=== PATIENT | female | born 1995 | race Caucasian/White ===

== ENCOUNTER 2016-08-04 17:25 | Outpatient (CLI) | payer MEDICAID ==
[~2016-08-04] VITALS: Ht 157.5 cm; Wt 95.0 kg
[2016-08-04 17:31] VITALS: BP 111/64; PULSE 92; TEMP 98.4
== END 2016-08-04 18:00 | disposition home or self-care (01) ==
LOC: LDRO 17:25 → EDSEX 17:25 → LDRO 18:00
DX: O36.8130 Decreased fetal movements, third trimester, not applicable or unspecified (principal); Z3A.33 33 weeks gestation of pregnancy

== ENCOUNTER 2016-08-18 13:38 | Inpatient (IN) | payer MEDICAID ==
[~2016-08-18] VITALS: Ht 160 cm; Wt 98.2 kg
[2016-09-08] MEDS ORDERED: TYLENOL 500MG500 MG PO (01:15)
[2016-09-11] VITALS (18 sets, daily range): BP systolic 114–137; BP diastolic 54–81; PULSE 80–119; TEMP 98.1–98.4
[2016-09-11 11:27] LABS: BASO % 0.2 % (0.0-2.0); EOS # 0.1 (0.0-0.7); EOS % 0.8 % (0-4.0); GRAN # 7.7 (1.4-6.5); GRAN % 65.5 % (42.2-75.2); LYMPH # 3.1 (1.2-3.4); LYMPH % 26.1 % (20.0-51.0); MEAN CELL VOLUME 89 fl (80.0-95.0); MEAN CORPUSCULAR HGB CONC 33 g/dl (33.0-37.0); MEAN PLATELET VOLUME 10.1 fl (7.4-10.4); MONO # 0.8 (0.1-0.6); MONO % 6.4 % (1.7-9.3); PLATELET COUNT 413 K/mm3 (130-400); RED BLOOD COUNT 3.44 M/mm3 (4.10-5.30); REDCELL DISTRIBUTION WIDTH-CV 14.4 % (11.5-14.5); WHITE BLOOD COUNT 11.8 K/mm3 (4.8-10.8)
[2016-09-11 11:28] LABS: HEMATOCRIT 30.5 % (35.0-45.0); HEMOGLOBIN 10.1 g/dl (12.0-15.0); MEAN CORPUSCULAR HEMOGLOBIN 29 pg (26.0-32.0)
[2016-09-12 00:30] VITALS: BP 123/61; PULSE 86; TEMP 98.2
[2016-09-12 05:00] VITALS: BP 126/64; PULSE 87; TEMP 98.4
[2016-09-12 07:00] VITALS: BP 125/65; PULSE 94; TEMP 98.1
[2016-09-12 07:47] LABS: BASO % 0.3 % (0.0-2.0); EOS # 0.1 (0.0-0.7); EOS % 0.4 % (0-4.0); GRAN # 7.5 (1.4-6.5); GRAN % 66.6 % (42.2-75.2); LYMPH # 2.8 (1.2-3.4); LYMPH % 24.8 % (20.0-51.0); MEAN CELL VOLUME 89 fl (80.0-95.0); MEAN CORPUSCULAR HGB CONC 33 g/dl (33.0-37.0); MEAN PLATELET VOLUME 10.4 fl (7.4-10.4); MONO # 0.8 (0.1-0.6); MONO % 7.1 % (1.7-9.3); PLATELET COUNT 338 K/mm3 (130-400); RED BLOOD COUNT 3.16 M/mm3 (4.10-5.30); REDCELL DISTRIBUTION WIDTH-CV 14.5 % (11.5-14.5); WHITE BLOOD COUNT 11.2 K/mm3 (4.8-10.8)
[2016-09-12 07:54] LABS: HEMOGLOBIN 9.2 g/dl (12.0-15.0); MEAN CORPUSCULAR HEMOGLOBIN 29 pg (26.0-32.0)
[2016-09-12] MEDS ORDERED: PERCOCET 325 MG1 TA2 PO (12:58)
[2016-09-12] MEDS ORDERED: IBU800 M1 PO (12:58)
[2016-09-12 15:25] VITALS: BP 116/72; PULSE 76; TEMP 97.6
[2016-09-12 21:00] VITALS: BP 113/67; PULSE 104; TEMP 97.7
[2016-09-13 08:30] VITALS: BP 117/58; PULSE 102; TEMP 97.8
== END 2016-09-13 13:30 | disposition home or self-care (01) | DRG 765 ==
LOC: LDR 09-11 08:32 → EDSEX 09-11 10:25 → OB 09-11 10:25 → EDSTATUS 09-18 08:30 → LDRO 09-18 13:37
PROVIDERS: Student in an Organized Health Care Education/Training Program
PROC: 10D00Z1 Extraction of Products of Conception, Low, Open Approach (ICD-10-PCS; principal; 2016-09-11)
DX: O9A.42 Sexual abuse complicating childbirth (principal); O98.313 Other infections with a predominantly sexual mode of transmission complicating pregnancy, third trimester; O36.0130 Maternal care for anti-D [Rh] antibodies, third trimester, not applicable or unspecified; A56.02 Chlamydial vulvovaginitis; O9A.32 Physical abuse complicating childbirth; O99.824 Streptococcus B carrier state complicating childbirth; O99.013 Anemia complicating pregnancy, third trimester; D64.9 Anemia, unspecified; Z3A.39 39 weeks gestation of pregnancy; Z37.0 Single live birth
CPT/HCPCS: J0690; J1885; J2370; J2405; J2590; J2791; J3010; J7120

== ENCOUNTER 2016-09-08 00:55 | Outpatient (CLI) | payer MEDICAID ==
[~2016-09-08] VITALS: Ht 157.5 cm; Wt 97.7 kg
[2016-09-08 01:07] VITALS: BP 123/75; PULSE 100; TEMP 97.9
[2016-09-08] MEDS ORDERED: TYLENOL 500MG500 MG PO (01:15)
[2016-09-08 01:30] VITALS: BP 123/75; PULSE 100; TEMP 97.9
[2016-09-08 02:00] VITALS: BP 128/72; PULSE 79
[2016-09-08 02:30] VITALS: BP 120/79; PULSE 93
[2016-09-08 03:00] VITALS: BP 126/67; PULSE 82
[2016-09-08 03:30] VITALS: BP 123/70; PULSE 78
== END 2016-09-08 04:20 | disposition home or self-care (01) ==
LOC: EDSEX 00:55 → LDRO 00:55
DX: O99.89 Other specified diseases and conditions complicating pregnancy, childbirth and the puerperium (principal); M54.9 Dorsalgia, unspecified; Z87.891 Personal history of nicotine dependence; Z3A.38 38 weeks gestation of pregnancy
CPT/HCPCS: J7120

== ENCOUNTER 2016-11-26 14:40 | Emergency (ER) | payer MEDICAID ==
[~2016-11-26] VITALS: Ht 157.5 cm; Wt 90.5 kg
[~2016-11-26 14:40] MED LIST: IBU800 M1 PO; PERCOCET 325 MG1 TA2 PO; TYLENOL 500MG500 MG PO
[2016-11-26 14:42] VITALS: BP 137/70; TEMP 98
[2016-11-26 16:08] LABS: AMPHETAMINE URINE NEGATIVE; BARBITURATES URINE NEGATIVE; BENZODIAZEPINES URINE NEGATIVE; BUPRENORPHINE URINE NEGATIVE; METHADONE URINE NEGATIVE; OPIATES URINE NEGATIVE; OXYCODONE URINE NEGATIVE; PHENCYCLIDINE URINE NEGATIVE; PROPOXYPHENE URINE NEGATIVE; THC CANNABINOIDS URINE POSITIVE
[2016-11-26 16:13] LABS: PH 7 (5-8); URINE APPEARANCE Hazy; URINE BACTERIA Rare /hpf; URINE BILIRUBIN Negative (NEGATIVE); URINE BLOOD Negative (NEGATIVE); URINE COLOR Yellow; URINE GLUCOSE Negative (NEGATIVE); URINE KETONE Negative (NEGATIVE); URINE UROBILINOGEN Negative (NEGATIVE)
[2016-11-26 16:14] LABS: URINE WBC >50 /hpf
[2016-11-26 16:48] LABS: CALCIUM 9.2 mg/dL (8.4-10.2); CREATININE, serum 0.74 mg/dL (0.52-1.25); MAGNESIUM 1.8 mg/dL (1.6-2.3); POTASSIUM 3.9 mmol/L (3.4-5.0)
[2016-11-26] MEDS ORDERED: CIPRO 500MG TA500 MG PO (16:56)
[2016-11-26 17:06] VITALS: PULSE 72
== END 2016-11-26 17:06 | disposition home or self-care (01) ==
LOC: COL.ER 14:40
PROVIDERS: Emergency Medicine
DX: N39.0 Urinary tract infection, site not specified (principal); R20.9 Unspecified disturbances of skin sensation; F17.210 Nicotine dependence, cigarettes, uncomplicated; Z32.02 Encounter for pregnancy test, result negative
CPT/HCPCS: J0696

== ENCOUNTER 2017-02-17 14:27 | Emergency (ER) | payer MEDICAID ==
[~2017-02-17] VITALS: Ht 157.5 cm; Wt 90.9 kg
[~2017-02-17 14:27] MED LIST changes: +CIPRO 500MG TA500 MG PO
[2017-02-17 14:30] VITALS: TEMP 98.1
[2017-02-17 15:04] LABS: COLLECTION METHOD CLEAN CATCH
[2017-02-17 15:14] LABS: BASO % 0.4 % (0.0-2.0); EOS # 0.2 (0.0-0.7); EOS % 1.9 % (0-4.0); GRAN # 5.7 (1.4-6.5); GRAN % 59.5 % (42.2-75.2); HEMATOCRIT 39.3 % (35.0-45.0); HEMOGLOBIN 12.5 g/dl (12.0-15.0); LYMPH # 3.2 (1.2-3.4); LYMPH % 33.3 % (20.0-51.0); MEAN CELL VOLUME 87 fl (80.0-95.0); MEAN CORPUSCULAR HEMOGLOBIN 28 pg (26.0-32.0); MEAN CORPUSCULAR HGB CONC 32 g/dl (33.0-37.0); MEAN PLATELET VOLUME 10.1 fl (7.4-10.4); MONO # 0.4 (0.1-0.6); MONO % 4.6 % (1.7-9.3); PLATELET COUNT 429 K/mm3 (130-400); WHITE BLOOD COUNT 9.6 K/mm3 (4.8-10.8)
[2017-02-17 15:24] LABS: MUCOUS Present /lpf; PH 6 (5-8); URINE APPEARANCE Hazy; URINE BACTERIA None Seen /hpf; URINE BILIRUBIN Negative (NEGATIVE); URINE BLOOD 1+ (NEGATIVE); URINE COLOR Yellow; URINE GLUCOSE Negative (NEGATIVE); URINE KETONE Negative (NEGATIVE); URINE LEUKOCYTE ESTERASE 2+ (NEGATIVE); URINE PROTEIN(semi-quant) Negative (NEGATIVE); URINE RBC 0-2 /hpf; URINE UROBILINOGEN Negative (NEGATIVE)
[2017-02-17 15:30] LABS: ALBUMIN 4.6 gm/dL (3.5-5.0); BILIRUBIN,TOTAL 0.4 mg/dL (0.0-1.0); C-REACTIVE PROTEIN 1.4 mg/dL (0.0-0.9); CALCIUM 9.5 mg/dL (8.4-10.2); CREATININE, serum 0.66 mg/dL (0.52-1.25); POTASSIUM 3.8 mmol/L (3.4-5.0)
[2017-02-17] MEDS ORDERED: ZOFRAN ODT4 MG PO (16:23)
[2017-02-17] MEDS ORDERED: CEFTIN500 MG PO (16:24)
[2017-02-17 16:33] VITALS: BP 124/74; PULSE 81
[2017-02-17 17:20] LABS: CHLAMYDIA/TRACH by PCR Female NOT DETECTED; NEISSERIA GON by PCR Female NOT DETECTED
== END 2017-02-17 16:34 | disposition home or self-care (01) ==
LOC: COL.ER 14:27
PROVIDERS: Nurse Practitioner
DX: N89.8 Other specified noninflammatory disorders of vagina (principal); R11.10 Vomiting, unspecified; F12.90 Cannabis use, unspecified, uncomplicated; Z87.440 Personal history of urinary (tract) infections
CPT/HCPCS: J2405; J7030

== ENCOUNTER 2017-05-27 15:40 | Emergency (ER) | payer MEDICAID ==
[~2017-05-27] VITALS: Ht 157.5 cm; Wt 90.9 kg
[~2017-05-27 15:40] MED LIST changes: +CEFTIN500 MG PO; +ZOFRAN ODT4 MG PO
[2017-05-27 15:44] VITALS: BP 134/100; PULSE 87; TEMP 98.8
== END 2017-05-27 17:27 | disposition left against medical advice (07) ==
LOC: COL.ER 15:40
DX: N89.8 Other specified noninflammatory disorders of vagina (principal); F17.210 Nicotine dependence, cigarettes, uncomplicated; F12.90 Cannabis use, unspecified, uncomplicated; Z98.890 Other specified postprocedural states

== ENCOUNTER 2017-12-29 11:03 | Emergency (ER) | payer SELFPAY ==
[~2017-12-29] VITALS: Ht 157.5 cm; Wt 90.9 kg
[2017-12-29 11:09] VITALS: TEMP 98.5
[2017-12-29 11:35] LABS: COLLECTION METHOD CLEAN CATCH
[2017-12-29 11:46] LABS: MUCOUS Present /lpf; PH 7 (5-8); URINE APPEARANCE Hazy; URINE BACTERIA Rare /hpf; URINE BILIRUBIN Negative (NEGATIVE); URINE BLOOD Negative (NEGATIVE); URINE COLOR Yellow; URINE GLUCOSE Negative (NEGATIVE); URINE KETONE Negative (NEGATIVE); URINE LEUKOCYTE ESTERASE Trace (NEGATIVE); URINE NITRATE Negative (NEGATIVE); URINE PROTEIN(semi-quant) Negative (NEGATIVE); URINE UROBILINOGEN Negative (NEGATIVE)
[2017-12-29 12:18] LABS: BASO # 0.1 (0.0-0.2); BASO % 0.5 % (0.0-2.0); EOS # 0.1 (0.0-0.7); EOS % 1.3 % (0-4.0); GRAN # 5.8 (1.4-6.5); GRAN % 54.9 % (42.2-75.2); HEMATOCRIT 40.3 % (37.0-47.0); HEMOGLOBIN 13.2 g/dl (12.5-16.0); LYMPH # 3.9 (1.2-3.4); LYMPH % 37.4 % (20.0-51.0); MEAN CELL VOLUME 91 fl (80.0-100.0); MEAN CORPUSCULAR HEMOGLOBIN 30 pg (27.0-31.0); MEAN CORPUSCULAR HGB CONC 33 g/dl (33.0-37.0); MEAN PLATELET VOLUME 9.7 fl (7.4-10.4); MONO # 0.6 (0.1-0.6); MONO % 5.3 % (1.7-9.3); PLATELET COUNT 395 K/mm3 (130-400); RED BLOOD COUNT 4.43 M/mm3 (4.10-5.30); REDCELL DISTRIBUTION WIDTH-CV 13.3 % (11.5-14.5)
[2017-12-29 12:28] LABS: ALBUMIN 4.4 gm/dL (3.5-5.0); BILIRUBIN,TOTAL 0.4 mg/dL (0.0-1.0); CALCIUM 9.4 mg/dL (8.4-10.2); CREATININE, serum 0.62 mg/dL (0.52-1.25); POTASSIUM 4.1 mmol/L (3.4-5.0); TOTAL PROTEIN 8.2 gm/dL (6.4-8.2)
[2017-12-29] MEDS ORDERED: FLAGYL500 MG PO (14:06)
[2017-12-29] MEDS ORDERED: DOXYCYCLINE 10100 MG PO (14:06)
[2017-12-29 14:39] VITALS: BP 121/70; PULSE 69
== END 2017-12-29 14:39 | disposition home or self-care (01) ==
LOC: COL.ER 11:03
PROVIDERS: Emergency Medicine; Nurse Practitioner
DX: N73.9 Female pelvic inflammatory disease, unspecified (principal); N76.0 Acute vaginitis; F32.9 Major depressive disorder, single episode, unspecified; F41.9 Anxiety disorder, unspecified; F12.90 Cannabis use, unspecified, uncomplicated; Z98.890 Other specified postprocedural states
CPT/HCPCS: J2405; J7030

== ENCOUNTER → 2018-02-17 | Outpatient (CLI) | payer SELFPAY ==
[~2018-02-17] MED LIST changes: +DOXYCYCLINE 10100 MG PO; +FLAGYL500 MG PO
== END ==
LOC: COL.VAS 10:45
DX: Z34.91 Encounter for supervision of normal pregnancy, unspecified, first trimester (principal); Z30.431 Encounter for routine checking of intrauterine contraceptive device; Z3A.01 Less than 8 weeks gestation of pregnancy

== ENCOUNTER 2018-02-22 11:30 | Emergency (ER) | payer MEDICAID ==
[~2018-02-22] VITALS: Ht 157.5 cm; Wt 96.8 kg
[2018-02-22 11:39] VITALS: TEMP 98.4
[2018-02-22 12:32] LABS: BASO % 0.4 % (0.0-2.0); EOS # 0.1 (0.0-0.7); EOS % 0.6 % (0-4.0); GRAN # 4.9 (1.4-6.5); GRAN % 61.5 % (42.2-75.2); HEMOGLOBIN 12.4 g/dl (12.5-16.0); LYMPH # 2.5 (1.2-3.4); LYMPH % 31.2 % (20.0-51.0); MEAN CELL VOLUME 91 fl (80.0-100.0); MEAN CORPUSCULAR HEMOGLOBIN 30 pg (27.0-31.0); MEAN CORPUSCULAR HGB CONC 34 g/dl (33.0-37.0); MEAN PLATELET VOLUME 10.1 fl (7.4-10.4); MONO # 0.5 (0.1-0.6); PLATELET COUNT 358 K/mm3 (130-400); RED BLOOD COUNT 4.09 M/mm3 (4.10-5.30); REDCELL DISTRIBUTION WIDTH-CV 13.3 % (11.5-14.5)
[2018-02-22 12:39] LABS: ALBUMIN 4.3 gm/dL (3.5-5.0); BILIRUBIN,TOTAL 0.5 mg/dL (0.0-1.0); CALCIUM 9.7 mg/dL (8.4-10.2); CREATININE, serum 0.57 mg/dL (0.52-1.25); POTASSIUM 3.7 mmol/L (3.4-5.0); TOTAL PROTEIN 7.7 gm/dL (6.4-8.2)
[2018-02-22 13:31] LABS: COLLECTION METHOD CLEAN CATCH
[2018-02-22 13:38] LABS: MUCOUS Present /lpf; PH 7 (5-8); SQUAMOUS EPITHELIAL 0-2 /hpf; URINE APPEARANCE Clear; URINE BACTERIA None Seen /hpf; URINE BILIRUBIN Negative (NEGATIVE); URINE BLOOD Negative (NEGATIVE); URINE COLOR Straw; URINE GLUCOSE Negative (NEGATIVE); URINE KETONE 1+ (NEGATIVE); URINE LEUKOCYTE ESTERASE Negative (NEGATIVE); URINE NITRATE Negative (NEGATIVE); URINE PROTEIN(semi-quant) Negative (NEGATIVE); URINE RBC 0-2 /hpf; URINE UROBILINOGEN Negative (NEGATIVE)
[2018-02-22 14:25] VITALS: BP 124/74; PULSE 77
== END 2018-02-22 14:25 | disposition home or self-care (01) ==
LOC: COL.ER 11:30
PROVIDERS: Physician Assistant
DX: O21.9 Vomiting of pregnancy, unspecified (principal); O99.331 Smoking (tobacco) complicating pregnancy, first trimester; F17.210 Nicotine dependence, cigarettes, uncomplicated; Z98.890 Other specified postprocedural states; Z3A.01 Less than 8 weeks gestation of pregnancy
CPT/HCPCS: J2405; J7030

== ENCOUNTER → 2018-03-02 | Outpatient (CLI) | payer MEDICAID ==
[~2018-03-02] MED LIST changes: +PRENATAL MVI
== END ==
LOC: COL.RAD 13:06
DX: T83.89XD Other specified complication of genitourinary prosthetic devices, implants and grafts, subsequent encounter (principal)

== ENCOUNTER 2018-03-03 15:06 | Emergency (ER) | payer MEDICAID ==
[~2018-03-03] VITALS: Ht 157.5 cm; Wt 94.1 kg
[~2018-03-03 15:06] MED LIST changes: -PRENATAL MVI
[2018-03-03 15:09] VITALS: TEMP 98.1
[2018-03-03] MEDS ORDERED: PRENATAL MVI (15:12)
[2018-03-03 15:36] LABS: COLLECTION METHOD CLEAN CATCH
[2018-03-03 15:41] LABS: BASO % 0.2 % (0.0-2.0); EOS % 0.2 % (0-4.0); GRAN # 9.9 (1.4-6.5); GRAN % 76.4 % (42.2-75.2); HEMATOCRIT 38.2 % (37.0-47.0); LYMPH # 2.5 (1.2-3.4); LYMPH % 19.3 % (20.0-51.0); MEAN CELL VOLUME 89 fl (80.0-100.0); MEAN CORPUSCULAR HEMOGLOBIN 30 pg (27.0-31.0); MEAN CORPUSCULAR HGB CONC 34 g/dl (33.0-37.0); MEAN PLATELET VOLUME 9.9 fl (7.4-10.4); MONO # 0.5 (0.1-0.6); MONO % 3.5 % (1.7-9.3); PLATELET COUNT 393 K/mm3 (130-400); RED BLOOD COUNT 4.29 M/mm3 (4.10-5.30); REDCELL DISTRIBUTION WIDTH-CV 13.2 % (11.5-14.5)
[2018-03-03 15:49] LABS: ALBUMIN 4.3 gm/dL (3.5-5.0); BILIRUBIN,TOTAL 0.3 mg/dL (0.0-1.0); CALCIUM 9.5 mg/dL (8.4-10.2); CREATININE, serum 0.49 mg/dL (0.52-1.25); POTASSIUM 3.7 mmol/L (3.4-5.0); TOTAL PROTEIN 7.7 gm/dL (6.4-8.2)
[2018-03-03 16:12] LABS: MUCOUS Present /lpf; PH 7 (5-8); URINE APPEARANCE Hazy; URINE BACTERIA Rare /hpf; URINE BILIRUBIN Negative (NEGATIVE); URINE BLOOD Negative (NEGATIVE); URINE COLOR Yellow; URINE GLUCOSE Negative (NEGATIVE); URINE KETONE 1+ (NEGATIVE); URINE LEUKOCYTE ESTERASE 1+ (NEGATIVE); URINE NITRATE Negative (NEGATIVE); URINE PROTEIN(semi-quant) 1+ (NEGATIVE); URINE RBC 0-2 /hpf; URINE UROBILINOGEN Negative (NEGATIVE)
[2018-03-03] MEDS ORDERED: ZOFRAN ODT4 MG PO (16:36)
[2018-03-03 17:02] VITALS: BP 128/64; PULSE 90
== END 2018-03-03 17:04 | disposition home or self-care (01) ==
LOC: COL.ER 15:06
PROVIDERS: Emergency Medicine
DX: O21.1 Hyperemesis gravidarum with metabolic disturbance (principal); Z3A.01 Less than 8 weeks gestation of pregnancy; Z98.890 Other specified postprocedural states
CPT/HCPCS: J2765; J7030

== ENCOUNTER 2018-05-24 08:37 | Emergency (ER) | payer MEDICAID ==
[~2018-05-24] VITALS: Ht 157.5 cm; Wt 96.0 kg
[~2018-05-24 08:37] MED LIST changes: +PRENATAL MVI
[2018-05-24 08:42] VITALS: TEMP 97.9
[2018-05-24] MEDS ORDERED: CORTISPORIN OTI10 ML OT (08:58)
[2018-05-24] MEDS ORDERED: AMOXICILLIN875 MG PO (08:58)
[2018-05-24 09:10] VITALS: BP 122/73; PULSE 93
[2018-05-24] MEDS ORDERED: TYLENOL 325MG325 MG PO (09:26)
== END 2018-05-24 09:10 | disposition home or self-care (01) ==
LOC: COL.ER 08:37
DX: O99.512 Diseases of the respiratory system complicating pregnancy, second trimester (principal); O26.892 Other specified pregnancy related conditions, second trimester; H92.01 Otalgia, right ear; J06.9 Acute upper respiratory infection, unspecified; J01.90 Acute sinusitis, unspecified; Z3A.20 20 weeks gestation of pregnancy

== ENCOUNTER 2018-07-07 22:27 | Outpatient (CLI) | payer MEDICAID ==
[~2018-07-07] VITALS: Ht 157.5 cm; Wt 95.9 kg
[~2018-07-07 22:27] MED LIST changes: +AMOXICILLIN875 MG PO; +CORTISPORIN OTI10 ML OT; +TYLENOL 325MG325 MG PO
[2018-07-07 22:41] VITALS: BP 125/61; PULSE 90; TEMP 98.3
[2018-07-07] MEDS ORDERED: ZOLOFT 50MG50 MG PO (22:49)
[2018-07-07 23:00] VITALS: BP 125/61; PULSE 90; TEMP 98.3
== END 2018-07-07 23:05 | disposition home or self-care (01) ==
LOC: LDRO 22:27
DX: O62.9 Abnormality of forces of labor, unspecified (principal); Z3A.25 25 weeks gestation of pregnancy

== ENCOUNTER 2018-08-10 21:14 | Outpatient (CLI) | payer MEDICAID ==
[~2018-08-10] VITALS: Ht 157.5 cm; Wt 98.2 kg
[~2018-08-10 21:14] MED LIST changes: +ZOLOFT 50MG50 MG PO
--- NOTE | 2018-08-10 21:30 | NUR ---
G2L1. 30-3. Ambulatory to LDR 5 with signifcant other. Clean gown on. EFM and TOCO explained and applied. Pt states she has been having back pain for the last 3 days. States that this afternoon pain started to radiate to her upper abdomen and only occurs when she bends down. Denies LOF or vaginal bleeding. Reports good movement. Pt reports she occationally smokes marijuana and states she lasted used marijuana on thursday08/06/2018. Pt reports that she has been drinking a lot of water. Assessment and vital signs compelted. 2156: called and updated on pts status. See physican notification. Pt updated on UA orders and plan of care. Pt off monitors to void. 2230: UA results called to . Discharge orders received. See physican notification. 2232: Pt updated on discharge orders and montiors removed. 5: Discharge instructions explained to pt and signifcant other. Questions answered. Pt ambulatory off unit and home with significant other.
[2018-08-10] MEDS ORDERED: TYLENOL 500MG500 MG PO (21:44)
[2018-08-10] MEDS ORDERED: BENADRYL25 M2 PO (21:45)
[2018-08-10 22:00] VITALS: BP 127/78; PULSE 91; TEMP 98.3
[2018-08-10 22:19] LABS: COLLECTION METHOD CLEAN CATCH
[2018-08-10 22:25] LABS: MUCOUS Present /lpf; PH 7 (5-8); SQUAMOUS EPITHELIAL 0-2 /hpf; URINE APPEARANCE Clear; URINE BACTERIA None Seen /hpf; URINE BILIRUBIN Negative (NEGATIVE); URINE BLOOD Negative (NEGATIVE); URINE COLOR Yellow; URINE GLUCOSE Negative (NEGATIVE); URINE KETONE Trace (NEGATIVE); URINE LEUKOCYTE ESTERASE Trace (NEGATIVE); URINE NITRATE Negative (NEGATIVE); URINE PROTEIN(semi-quant) Negative (NEGATIVE); URINE RBC 0-2 /hpf; URINE UROBILINOGEN Negative (NEGATIVE)
[2018-08-10 22:33] VITALS: BP 116/56; PULSE 92
== END 2018-08-10 22:45 | disposition home or self-care (01) ==
LOC: LDRO 21:14
PROVIDERS: Obstetrics & Gynecology
DX: O99.89 Other specified diseases and conditions complicating pregnancy, childbirth and the puerperium (principal); M54.9 Dorsalgia, unspecified; Z3A.30 30 weeks gestation of pregnancy

== ENCOUNTER 2018-09-05 10:05 | Outpatient (CLI) | payer MEDICAID ==
[~2018-09-05] VITALS: Ht 157.5 cm; Wt 99.1 kg
[~2018-09-05 10:05] MED LIST changes: +BENADRYL25 M2 PO
--- NOTE | 2018-09-05 10:15 | NUR ---
1015-34.1 [address] GONZALEZ AMBULATORY OT LR 3 WITH COMPLAINTS OF DECREASED FM FOLLOWING A FALL 30 MIN AGO. PATIENT WITH MUD ON UPPER ARM AND ALL OVER BLE. ASSISTED PATIENT TO CLEAN UP AND CHANGE INTO GOWN. PATIENT TO BED AND PLACED ON EFM. REACTIVE FHR WITH BASELINE 120BPM. PATIENT DENIES CONTRACTIONS, LOF, OR VB. UPDATED ON PLAN OF CARE. BP 141/87 AT THIS TIME. REVIEWED ASSESSMENT. PATIENT INITIALLY STATES SHE WAS CHASING A DOG AND THE MUD CAUSED HER FALL. AFTER FURTHER DISCUSSION PATIENT REPORTS SHE FELL WHILE PUSHING HER CAR OUT OF MUD AFTER SEEING STRAY DOG AND ATTEMPTING TO TAKE IT TO POUND. PATIENTS REPORT OF EVENTS NOT VERY CLEAR. RN ASKS PATIENT IF ANY OF THE EVENTS WERE THE RESULT OF ABUSE. PATIENT STRONGLY ANSWERS "NO" AND REPORTS SHE WAS ALONE IN CAR AND HAD TO CALL TOW TRUCK AND THEY CAN VERIFY EVENTS. REPORTS HER IS HOME AND SHE HAS TRIED TO WAKE HIM BUT HE IS NOT ANSWERING. 1055-UPDATED MD ON PATIENTS ARRIVAL AND REVIEWED BP AND STRIP WITH MD, SEE PHYSICIAN NOTIFICATION.
[2018-09-05 10:20] VITALS: BP 141/87; PULSE 97; TEMP 98.5
[2018-09-05 10:45] VITALS: BP 135/77; PULSE 81; TEMP 98.5
[2018-09-05 11:15] VITALS: BP 134/78; PULSE 82
[2018-09-05 11:45] VITALS: BP 129/73; PULSE 81
[2018-09-05 11:50] LABS: TRICYCLIC ANTIDEPRESS URINE NEGATIVE
[2018-09-05 12:15] VITALS: BP 130/79; PULSE 82
--- NOTE | 2018-09-05 12:50 | NUR ---
1212-PATIENT MOVING IN BED. ADJUSTED EFM. 1215-PATIENT OFF EFM. REVIEWED DISCHARGE INSTRUCTIONS AND KICK COUNTS WITH PATIENT. PATIENT VERBALIZED UNDERSTANDING. 1221-AMBULATORY OFF UNIT.
== END 2018-09-05 12:21 | disposition home or self-care (01) ==
LOC: LDRO 10:05 → LDR 11:02 → LDRO 12:21
PROVIDERS: Obstetrics & Gynecology
DX: O36.8130 Decreased fetal movements, third trimester, not applicable or unspecified (principal); Z3A.34 34 weeks gestation of pregnancy
CPT/HCPCS: OP

== ENCOUNTER 2018-09-27 11:50 | Outpatient (CLI) | payer MEDICAID ==
[~2018-09-27] VITALS: Ht 157.5 cm; Wt 100.0 kg
--- NOTE | 2018-09-27 12:00 | NUR ---
Pt arrives on unit ambulatory with spouse. States contractions that are painful that began last night and continued into this morning. States contractions every 10 minutes with constant movement. Denies leaking of fluid, vaginal bleeding and reports movement. Changed into a clean gown. EFM and toco applied. VSS. Admission assessment completed. Dr. Power notified. See physician notification. Pt updated on POC. Safety reviewed. Bed locked in low position. Call light within reach.
[2018-09-27 12:30] VITALS: BP 136/70; PULSE 93; TEMP 98.3
[2018-09-27 12:57] VITALS: BP 118/58; PULSE 77
== END 2018-09-27 13:04 | disposition home or self-care (01) ==
LOC: LDRO 11:50 → LDR 12:00 → LDRO 13:04
DX: O62.9 Abnormality of forces of labor, unspecified (principal); Z3A.37 37 weeks gestation of pregnancy
CPT/HCPCS: OP

== ENCOUNTER 2018-10-04 15:25 | Outpatient (CLI) | payer MEDICAID ==
[~2018-10-04] VITALS: Ht 160 cm; Wt 100.0 kg
[2018-10-04 15:43] VITALS: BP 124/70; PULSE 105; TEMP 98
[2018-10-04 16:00] VITALS: BP 124/70; PULSE 105; TEMP 98
[2018-10-04 16:23] LABS: COLLECTION METHOD CLEAN CATCH
[2018-10-04 16:30] VITALS: BP 117/61; BP 125/60; PULSE 82; PULSE 89
[2018-10-04 16:34] LABS: MUCOUS Present /lpf; PH 7 (5-8); URINE APPEARANCE Hazy; URINE BACTERIA None Seen /hpf; URINE BILIRUBIN Negative (NEGATIVE); URINE BLOOD Negative (NEGATIVE); URINE COLOR Yellow; URINE GLUCOSE Negative (NEGATIVE); URINE KETONE Negative (NEGATIVE); URINE LEUKOCYTE ESTERASE 1+ (NEGATIVE); URINE NITRATE Negative (NEGATIVE); URINE PROTEIN(semi-quant) Negative (NEGATIVE); URINE UROBILINOGEN Negative (NEGATIVE)
[2018-10-04 16:56] LABS: TRICYCLIC ANTIDEPRESS URINE NEGATIVE
[2018-10-04 17:00] VITALS: BP 116/69; PULSE 91
[2018-10-04 17:30] VITALS: BP 125/56; PULSE 88
[2018-10-04 17:45] VITALS: BP 119/61; PULSE 82
--- NOTE | 2018-10-04 17:50 | NUR ---
ANTIBIOTIC CALLED INTO [facility]
== END 2018-10-04 17:50 | disposition home or self-care (01) ==
LOC: LDRO 15:25 → LDR 16:11 → LDRO 17:50
PROVIDERS: Obstetrics & Gynecology
DX: O62.2 Other uterine inertia (principal); Z3A.38 38 weeks gestation of pregnancy
CPT/HCPCS: OP; J7120

== ENCOUNTER 2018-10-10 21:52 | Outpatient (CLI) | payer MEDICAID ==
[~2018-10-10] VITALS: Ht 157.5 cm; Wt 100.5 kg
--- NOTE | 2018-10-10 22:00 | NUR ---
2199- PATIENT BEING SEEN AT 39.2 WEEK G2L1 WITH C/O DECREASED MOVEMENT AND PINK VAGINAL FLUID. EFM APPLIED, HEARTONES AUDIBLE. VSS. 2206- SVE /, AMNIOTEST NEGATIVE. SMALL AMOUNT OF VISABLE FLUID EXTERNALLY.
[2018-10-10 22:13] VITALS: BP 141/91; PULSE 120; TEMP 98.7
[2018-10-10 22:15] VITALS: BP 141/91; PULSE 120; TEMP 98.7
[2018-10-10] MEDS ORDERED: PROFE180 MG PO (22:21)
[2018-10-10] MEDS ORDERED: TYLENOL 500MG500 MG PO (22:22)
== END 2018-10-10 23:33 | disposition home or self-care (01) ==
LOC: LDRO 21:52
DX: O36.8130 Decreased fetal movements, third trimester, not applicable or unspecified (principal); O62.9 Abnormality of forces of labor, unspecified; Z3A.39 39 weeks gestation of pregnancy

== ENCOUNTER 2018-10-11 19:44 | Outpatient (CLI) | payer MEDICAID ==
[~2018-10-11] VITALS: Ht 157.5 cm; Wt 100.5 kg
[~2018-10-11 19:44] MED LIST changes: +PROFE180 MG PO
--- NOTE | 2018-10-11 20:00 | NUR ---
Pt arrived on unit ambulatory and escorted by . Pt reports some "milky white" fluid this evening and contractions every 3-5 minutes. Pt denies vaginal bleeding and reports normal movement. Pt also reports she is scheduled for repeat c/s tomorrow 10/12/18 at 11am. EFM and toco monitors placed. Vital signs WNL. SVE by this RN /-1. Amnio-test negative with no extra fluid noted on exam. Information reviewed with Dr. Hampton. Orders for extended labor assessment with oral hydration received. Plan of care reviewed wt pt and at the bedside.
[2018-10-11 21:00] VITALS: BP 128/69; PULSE 86; TEMP 98.1
[2018-10-11 22:00] VITALS: BP 130/62; PULSE 78
--- NOTE | 2018-10-11 22:20 | NUR ---
SVE by this RN with no change . Pt requesting to go home. Spoke with Dr. Hampton. We reviewed FHR tracing, SVE, ctx pattern and pt's request to go home. Orders for discharge home received. Discharge information reviewed with pt. Pt verbalized an understanding, agreed with the plan and states no questions or concerns at this time.
[2018-10-12] MEDS ORDERED: BENADRYL50 MG PO (09:13)
== END 2018-10-11 22:30 | disposition home or self-care (01) ==
LOC: LDRO 19:44 → LDR 20:49 → LDRO 22:30
DX: O62.9 Abnormality of forces of labor, unspecified (principal); Z3A.39 39 weeks gestation of pregnancy
CPT/HCPCS: OP

== ENCOUNTER 2018-10-12 08:10 | Inpatient (IN) | payer MEDICAID ==
[~2018-10-12] VITALS: Ht 157.5 cm; Wt 100.0 kg
[2018-10-12] VITALS (17 sets, daily range): BP systolic 100–137; BP diastolic 57–89; PULSE 66–102; TEMP 97.9–98.8
--- NOTE | 2018-10-12 08:55 | NUR ---
Patient ambulatory onto unit for scheduled section. Patient oriented to room, changes into gown, plan of care discussed. UDS obtained for marijuana use. Patient reports good movement, denies leaking of fluid, vaginal bleeding, or contractions. EFMs on, VS taken. IV started to right hand, LR bolusing per orders. Assessment completed. Consents signed. PreOp medications given per orders, see eMAR.
[2018-10-12] MEDS ORDERED: BENADRYL50 MG PO (09:13)
[2018-10-12 09:57] LABS: BASO % 0.4 % (0.0-2.0); EOS # 0.1 (0.0-0.7); EOS % 0.7 % (0-4.0); GRAN # 5.1 (1.4-6.5); GRAN % 60.2 % (42.2-75.2); HEMOGLOBIN 10.4 g/dl (12.5-16.0); LYMPH # 2.6 (1.2-3.4); LYMPH % 31.4 % (20.0-51.0); MEAN CELL VOLUME 90 fl (80.0-100.0); MEAN CORPUSCULAR HEMOGLOBIN 30 pg (27.0-31.0); MEAN CORPUSCULAR HGB CONC 33 g/dl (33.0-37.0); MONO # 0.6 (0.1-0.6); MONO % 6.7 % (1.7-9.3); PLATELET COUNT 389 K/mm3 (130-400); RED BLOOD COUNT 3.52 M/mm3 (4.10-5.30); REDCELL DISTRIBUTION WIDTH-CV 14.6 % (11.5-14.5)
[2018-10-12 09:58] LABS: HEMATOCRIT 31.6 % (37.0-47.0)
[2018-10-12 10:09] LABS: TRICYCLIC ANTIDEPRESS URINE NEGATIVE
--- NOTE | 2018-10-12 10:40 | NUR ---
Patient ambulatory to OR with FOB and this RN at side.
--- NOTE | 2018-10-12 11:45 | NUR ---
Patient into PACU.
--- NOTE | 2018-10-12 13:10 | NUR ---
Assumed care of patient. Rests in bed, alert. States having more pain.
--- NOTE | 2018-10-12 13:28 | NUR ---
Request pain medication. Morphine 2 mg iv given per request and as ordered.
--- NOTE | 2018-10-12 16:30 | NUR ---
Rests in bed, alert. Visits with family.
[2018-10-13 01:30] VITALS: BP 122/80; PULSE 103
[2018-10-13 07:15] VITALS: BP 123/58; PULSE 80; TEMP 98.1
--- NOTE | 2018-10-13 09:03 | NUR ---
Initial visit; Patient thanked Plumbing Inspector for offering congratulations for the of her son. Plumbing Inspector thanked patient for choosing [facility].
[2018-10-13] MEDS ORDERED: PERCOCET 325 MG1 TA2 PO (09:31)
[2018-10-13] MEDS ORDERED: IBU800 M1 PO (09:31)
--- NOTE | 2018-10-13 15:39 | NUR ---
wood and wood products factory worker met with patient, briefly, as she was sleeping. Worker left resource pamphlets and stated would return in the morning to complete assessment. Worker collaborated with nursing regarding the above information. Worker filed CPS report as patient tested positive for cannabinoids. Infant's urine drug screen was negative and we will await cord blood testing. CPS report #[id number]. Worker met with Keily Simental, CPS worker, who was visiting with patient. Worker shared concerns of drug testing and where and who was parenting patient's 2 year old at this time.
[2018-10-13 16:18] VITALS: BP 116/68; PULSE 76; TEMP 98.2
--- NOTE | 2018-10-13 16:33 | NUR ---
composition siding worker spoke with ALIYAH Bautista and gave updates on patient. Mary plans to meet with patient at her home on Thursday.
[2018-10-13 19:30] VITALS: BP 124/65; PULSE 101; TEMP 98.5
[2018-10-14 07:00] VITALS: BP 130/72; PULSE 90; TEMP 98.2
--- NOTE | 2018-10-14 07:00 | NUR ---
Ambulates to the nursery to get baby. Request pain medication. 0710 Percocet 2 5/325 mg given per request and as ordered. Denies any other needs at this time.
--- NOTE | 2018-10-14 09:52 | NUR ---
Sits on edge of bed eating breakfast. Ibuprofen 800 mg given as ordered. Denies any other needs at this time.
--- NOTE | 2018-10-14 11:52 | NUR ---
pack mule worker met with patient to assess needs. Father of the baby was sleeping during interview. Patient states she lives with the father of the baby in [place]. Patient stated that she has a parent and one in shelter and that father of the baby's parents have had their 2 year old son since he was 2 months old. 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 Patient states they have needed supplies, however, need diapers. [facility] other [facility] in the hospital. Patient stated that she was not going to smoke marijuana anymore and is aware of [facility]'s treatment programs for substance abuse. Worker encouraged patient to reach out to her talk therapist at the [facility] as patient stated she hadn't talke to her in a while. Patient stated she would monitor her depression and could reach out to her 's parents to help if needed. Worker left message for DCF worker, Donna Longoria to advise that patient is discharging today. Donna stated she will make a home visit on 10/15/18 to evaluate the home. Worker collaborated with Dr Tolliver and nursing regarding the above information.
--- NOTE | 2018-10-14 11:56 | NUR ---
Discharge instructions given, verbalizes understanding.
--- NOTE | 2018-10-15 13:20 | NUR ---
Patient's 's cord blood was positive for cannabinoids. Worker filed a CPS report #[id number]. Worker left message for Mary Longoria, ZAHIRA, and physician regarding the above information.
== END 2018-10-14 12:25 | disposition home or self-care (01) | DRG 788 ==
LOC: OB 08:10
PROVIDERS: ADMIT Student in an Organized Health Care Education/Training Program
PROC: 10D00Z1 Extraction of Products of Conception, Low, Open Approach (ICD-10-PCS; principal; 2018-10-12)
DX: O99.824 Streptococcus B carrier state complicating childbirth (principal); Z3A.39 39 weeks gestation of pregnancy; Z37.0 Single live birth; O26.893 Other specified pregnancy related conditions, third trimester; Z91.410 Personal history of adult physical and sexual abuse; R87.619 Unspecified abnormal cytological findings in specimens from cervix uteri; O99.02 Anemia complicating childbirth; D64.9 Anemia, unspecified; Z67.41 Type O blood, Rh negative
CPT/HCPCS: J0690; J1885; J2270; J2370; J2405; J2590; J2765; J7120

== ENCOUNTER 2018-11-12 08:20 | Emergency (ER) | payer MEDICAID ==
[~2018-11-12] VITALS: Ht 157.5 cm; Wt 94.5 kg
[~2018-11-12 08:20] MED LIST changes: +BENADRYL50 MG PO
[2018-11-12 08:23] VITALS: BP 133/66; TEMP 98.6
[2018-11-12] MEDS ORDERED: EMGEL 2% TOP (08:32)
[2018-11-12] MEDS ORDERED: CEPHALEXIN500 M1 PO (08:54)
[2018-11-12] MEDS ORDERED: NYSTATIN CREAM15 GM TOP (08:54)
[2018-11-12 09:18] VITALS: PULSE 79
== END 2018-11-12 09:25 | disposition home or self-care (01) ==
LOC: COL.ER 08:20
DX: O86.01 Infection of obstetric surgical wound, superficial incisional site (principal); F12.90 Cannabis use, unspecified, uncomplicated; Z87.891 Personal history of nicotine dependence; Z88.5 Allergy status to narcotic agent

== ENCOUNTER 2019-11-21 17:46 | Emergency (ER) | payer MEDICAID ==
[~2019-11-21] VITALS: Ht 160 cm; Wt 90.9 kg
[~2019-11-21 17:46] MED LIST changes: +CEPHALEXIN500 M1 PO; +EMGEL 2% TOP; +NYSTATIN CREAM15 GM TOP
[2019-11-21 18:19] VITALS: BP 117/77; TEMP 98.3
[2019-11-21 19:00] LABS: COLLECTION METHOD CLEAN CATCH
[2019-11-21 19:17] LABS: MUCOUS Present /lpf; PH 5 (5-8); URINE APPEARANCE Hazy; URINE BACTERIA Rare /hpf; URINE BILIRUBIN Negative (NEGATIVE); URINE BLOOD Negative (NEGATIVE); URINE COLOR Yellow; URINE GLUCOSE Negative (NEGATIVE); URINE KETONE Negative (NEGATIVE); URINE LEUKOCYTE ESTERASE 1+ (NEGATIVE); URINE NITRATE Negative (NEGATIVE); URINE PROTEIN(semi-quant) 1+ (NEGATIVE)
[2019-11-21 19:46] LABS: BASO % 0.4 % (0.0-2.0); EOS # 0.1 (0.0-0.7); EOS % 0.9 % (0-4.0); GRAN # 6.7 (1.4-6.5); GRAN % 64.5 % (42.2-75.2); HEMOGLOBIN 11.5 g/dl (12.5-16.0); LYMPH # 3.1 (1.2-3.4); LYMPH % 29.4 % (20.0-51.0); MEAN CELL VOLUME 90 fl (80.0-100.0); MEAN CORPUSCULAR HEMOGLOBIN 29 pg (27.0-31.0); MEAN CORPUSCULAR HGB CONC 33 g/dl (33.0-37.0); MEAN PLATELET VOLUME 9.8 fl (7.4-10.4); MONO # 0.5 (0.1-0.6); MONO % 4.4 % (1.7-9.3); PLATELET COUNT 351 K/mm3 (130-400); RED BLOOD COUNT 3.92 M/mm3 (4.10-5.30); REDCELL DISTRIBUTION WIDTH-CV 14.4 % (11.5-14.5)
[2019-11-21 19:57] LABS: HEMATOCRIT 35.3 % (37.0-47.0)
[2019-11-21 19:58] LABS: ALBUMIN 4.1 gm/dL (3.5-5.0); BILIRUBIN,TOTAL 0.3 mg/dL (0.0-1.0); C-REACTIVE PROTEIN 1.6 mg/dL (0.0-0.9); CALCIUM 8.8 mg/dL (8.4-10.2); CREATININE, serum 0.8 (0.52-1.25); POTASSIUM 3.5 mmol/L (3.4-5.0); TOTAL PROTEIN 7.5 gm/dL (6.4-8.2)
[2019-11-21] MEDS ORDERED: FLAGYL500 MG PO (20:51)
[2019-11-21] MEDS ORDERED: MACROBID 1100 MG/CAP PO (20:51)
[2019-11-21 21:54] VITALS: PULSE 77
== END 2019-11-21 21:54 | disposition home or self-care (01) ==
LOC: COL.ER 17:46
PROVIDERS: Emergency Medicine
DX: O23.41 Unspecified infection of urinary tract in pregnancy, first trimester (principal); O23.591 Infection of other part of genital tract in pregnancy, first trimester; B96.89 Other specified bacterial agents as the cause of diseases classified elsewhere; O26.891 Other specified pregnancy related conditions, first trimester; R10.9 Unspecified abdominal pain; Z3A.00 Weeks of gestation of pregnancy not specified; Z88.6 Allergy status to analgesic agent
CPT/HCPCS: J7030

== ENCOUNTER 2019-12-06 18:04 | Emergency (ER) | payer MEDICAID ==
[~2019-12-06] VITALS: Ht 157.5 cm; Wt 95.5 kg
[~2019-12-06 18:04] MED LIST changes: +MACROBID 1100 MG/CAP PO
[2019-12-06 18:42] VITALS: BP 111/73; TEMP 99.1
[2019-12-06 19:16] LABS: COLLECTION METHOD CLEAN CATCH
[2019-12-06 19:23] LABS: BASO % 0.2 % (0.0-2.0); EOS # 0.1 (0.0-0.7); EOS % 0.8 % (0-4.0); GRAN # 5.8 (1.4-6.5); GRAN % 64.2 % (42.2-75.2); HEMATOCRIT 37.1 % (37.0-47.0); HEMOGLOBIN 12.4 g/dl (12.5-16.0); LYMPH # 2.5 (1.2-3.4); LYMPH % 27.7 % (20.0-51.0); MEAN CELL VOLUME 90 fl (80.0-100.0); MEAN CORPUSCULAR HEMOGLOBIN 30 pg (27.0-31.0); MEAN CORPUSCULAR HGB CONC 33 g/dl (33.0-37.0); MEAN PLATELET VOLUME 9.9 fl (7.4-10.4); MONO # 0.6 (0.1-0.6); MONO % 6.7 % (1.7-9.3); PLATELET COUNT 368 K/mm3 (130-400); RED BLOOD COUNT 4.11 M/mm3 (4.10-5.30); REDCELL DISTRIBUTION WIDTH-CV 14.4 % (11.5-14.5)
[2019-12-06 19:34] LABS: ALBUMIN 4.5 gm/dL (3.5-5.0); BILIRUBIN,TOTAL 0.3 mg/dL (0.0-1.0); C-REACTIVE PROTEIN 2.2 mg/dL (0.0-0.9); CREATININE, serum 0.61 (0.52-1.25); PH 7 (5-8); POTASSIUM 3.7 mmol/L (3.4-5.0); TOTAL PROTEIN 7.9 gm/dL (6.4-8.2); URINE APPEARANCE Hazy; URINE BACTERIA Rare /hpf; URINE BILIRUBIN Negative (NEGATIVE); URINE BLOOD Negative (NEGATIVE); URINE COLOR Yellow; URINE GLUCOSE Negative (NEGATIVE); URINE KETONE Negative (NEGATIVE); URINE LEUKOCYTE ESTERASE 1+ (NEGATIVE); URINE NITRATE Negative (NEGATIVE); URINE PROTEIN(semi-quant) Negative (NEGATIVE); URINE UROBILINOGEN Negative (NEGATIVE)
[2019-12-06 20:55] VITALS: PULSE 72
== END 2019-12-06 20:54 | disposition home or self-care (01) ==
LOC: COL.ER 18:04
PROVIDERS: Emergency Medicine
DX: O26.891 Other specified pregnancy related conditions, first trimester (principal); Z3A.01 Less than 8 weeks gestation of pregnancy; Z88.6 Allergy status to analgesic agent
CPT/HCPCS: J7030

== ENCOUNTER 2020-06-22 15:54 | Outpatient (CLI) | payer MEDICAID ==
[~2020-06-22] VITALS: Ht 157.5 cm; Wt 113.6 kg
--- NOTE | 2020-06-22 16:00 | NUR ---
1600- Pt arrives on unit with complaints of abd cramping that radiates to her back and down her legs, says they occur about every 20-30mins. Pt changes into gown. 1603- Pt into bed, EFM on and tracing. Pt states she has not been feeling the baby move as much over the past couple of days, states she felt her move around lunch time today. Assessment completed.
[2020-06-22] MEDS ORDERED: ZOLOFT 50MG50 MG PO (16:19)
[2020-06-22] MEDS ORDERED: TYLENOL 500MG500 MG PO (16:19)
[2020-06-22 16:30] VITALS: BP 122/82; PULSE 108
[2020-06-22 17:00] VITALS: BP 122/58; PULSE 113
[2020-06-22 17:32] VITALS: BP 129/69; PULSE 102
--- NOTE | 2020-06-22 17:52 | NUR ---
1752- DISMISSAL INSTRUCTIONS GIVEN AND PT VERBALIZES UNDERSTANDING. PT DISMISSED TO HOME AMBULATORY ACCOMPANIED BY SELF.
== END 2020-06-22 17:52 | disposition home or self-care (01) ==
LOC: LDRO 15:54 → LDR 16:00 → LDRO 17:52
DX: Z34.93 Encounter for supervision of normal pregnancy, unspecified, third trimester (principal); Z3A.38 38 weeks gestation of pregnancy
CPT/HCPCS: OP

== ENCOUNTER 2020-07-10 10:58 | Outpatient (CLI) | payer MEDICAID ==
[~2020-07-10] VITALS: Ht 157.5 cm; Wt 109.1 kg
[2020-07-10 11:00] VITALS: BP 122/73; PULSE 104; TEMP 97.1
[2020-07-10] MEDS ORDERED: PRILOSEC 20MG20 MG (11:14)
--- NOTE | 2020-07-10 11:36 | NUR ---
1100 PATIENT HERE PER AMBULANCE FOR COMPLAINTS OF CONTRACTIONS SINCE EARLY THIS MORNING. ASSESSMENT COMPLETED. EFM ON FHT 120 AND BABY ACTIVE. OCCASIONAL CONTRACTIONS FELT AND ON MONITOR. IVF BOLUS GIVEN AT THIS TIME. DR MENDEZ UPDATED AND ORDERS TO MONITOR FOR ONE HOUR AND RECHECK.
[2020-07-10 12:00] VITALS: BP 106/66; PULSE 77
--- NOTE | 2020-07-10 12:35 | NUR ---
1200 patient rest sin bed and vomits. LR 2nf bag hung at this time, and zofran 8 mg iv given. 1230 pt dimissed from monitors at this time and states feels so much better at this time. sve unchanged. all discharge instructions given with verbal understanding noted.
== END 2020-07-10 13:00 | disposition home or self-care (01) ==
LOC: LDRO 10:58
DX: O62.9 Abnormality of forces of labor, unspecified (principal); Z3A.37 37 weeks gestation of pregnancy
CPT/HCPCS: J2405; J7120

== ENCOUNTER 2020-07-16 02:56 | Inpatient (IN) | payer MEDICAID ==
[2020-07-16] VITALS (19 sets, daily range): BP systolic 116–152; BP diastolic 55–86; PULSE 86–115; TEMP 97.5–98.2
[~2020-07-16] VITALS: Ht 157.5 cm; Wt 113.6 kg
[~2020-07-16 02:56] MED LIST changes: +PRILOSEC 20MG20 MG
--- NOTE | 2020-07-16 03:00 | NUR ---
0300- PT PRESENTS TO LDR COMPLAINING OF UTERINE CONTRACTIONS, AMBULATORY TO ROOM LR3, CHANGED INTO GOWN. 030- EFM X2 APPLIED. PT DENIES VAGINAL BLEEDING. STATES SHE MAY HAVE STARTED LEAKING SOME WHITE FLUID AROUND 2044, STATES SHE IS FEELING THE BABY MOVE LESS TODAY. PLAN OF CARE FOR LABOR CHECK DISCUSSED AND QUESTIONS ANSWERED. 0315- AMNIOTRACE POSITVE FOR ROM. SVE BY THIS NURSE -. 0335- DR HERNANDEZ UPDATED AND GIVES ORDERS FOR ADMISSION. 0400- IV START TO RIGHT WRIST CHARTED, BLOOD DRAWN FOR LABS. LR INFUSING. 0405- DR HERNANDEZ AT BEDSIDE AND DISCUSSED PLAN OF CARE, CONSENTS SIGNED. 0410- NURSE AT BEDSIDE. PT REPOSITIONED AND MONITORS ADJUSTED. 0412- DIFFICULT TO TRACE. PT TURNED TO RIGHT TILD, MONITORS ADJUSTED. 0414- HEART TONES IN 60'S, O2 STARTED AT 10L PER MASK, PT TURNED BACK TO LEFT, SVE BY Cece REID . 0415- PT ASSISTED TO KNEE CHEST. MONITORS ADJUSTED. DR HERNANDEZ AT BEDSIDE. 0416- HEART TONES UP OVER 100. DR HERNANDEZ REVIEWS STRIP AT BEDSIDE. STATES TO PROCEED TO OR FOR . 0420- PT OFF MONITORS AND TO OR PER BED.
--- NOTE | 2020-07-16 06:05 | NUR ---
0605- PERICARE PROVIDED, CLEAN PAD AND GOWN. PT TOLERATED WELL AND DENIES NEEDS.
[2020-07-16 07:19] LABS: BASO % 0.2 % (0.0-2.0); EOS # 0.1 (0.0-0.7); EOS % 0.5 % (0-4.0); GRAN # 9.1 (1.4-6.5); GRAN % 66.9 % (42.2-75.2); HEMOGLOBIN 10.5 g/dl (12.5-16.0); LYMPH # 3.5 (1.2-3.4); LYMPH % 25.4 % (20.0-51.0); MEAN CELL VOLUME 93 fl (80.0-100.0); MEAN CORPUSCULAR HEMOGLOBIN 30 pg (27.0-31.0); MEAN CORPUSCULAR HGB CONC 32 g/dl (33.0-37.0); MEAN PLATELET VOLUME 10.7 fl (7.4-10.4); MONO # 0.8 (0.1-0.6); PLATELET COUNT 445 K/mm3 (130-400); RED BLOOD COUNT 3.55 M/mm3 (4.10-5.30); REDCELL DISTRIBUTION WIDTH-CV 14.8 % (11.5-14.5)
[2020-07-16 07:21] LABS: HEMATOCRIT 32.9 % (37.0-47.0)
[2020-07-16 09:17] LABS: TRICYCLIC ANTIDEPRESS URINE NEGATIVE
--- NOTE | 2020-07-16 12:02 | NUR ---
1130 MOTHER BACK TO ROOM FROM NURSERY AT THIS TIME. PT AMBULATED TO BATHROOM INDEPENDENTLY. RN TO REMOVE DILLON AT THIS TIME. PERICARE, MESH PANTIES AND NEW PAD APPLIED. PT AMBULATED BACK TO BED, TOLERATED WELL. 1200 PT REQUESTS PAIN MEDS AT THIS TIME. RATES PAIN 4 OR 5. MOTRIN GIVEN NOW. PT SUPPORT PERSON HERE AT BEDSIDE NOW.
[2020-07-17] VITALS: BP 125/55; PULSE 87; TEMP 97.4
[2020-07-17 08:24] LABS: HEMATOCRIT 28.8 % (37.0-47.0); HEMOGLOBIN 9.4 g/dl (12.5-16.0)
[2020-07-17] MEDS ORDERED: IBU600 MG PO (09:45)
[2020-07-17] MEDS ORDERED: PERCOCET 325 MG1 TA2 PO (09:45)
[2020-07-17] MEDS ORDERED: FERROUS SU325 MG/TAB PO (09:45)
--- NOTE | 2020-07-17 09:48 | NUR ---
Initial visit attempt; Patient indisposed, [employer] Insulation left card of congratulations for her daughter and information regarding the availability of spiritual care at our hospital.
[2020-07-17 09:55] VITALS: BP 134/56; PULSE 103; TEMP 98.1
--- NOTE | 2020-07-17 10:07 | NUR ---
SW responded to consult. The patient and baby's UDS was positive for cannabinoids. DULCE met with the patient. The patient is living alone in [place] right now. Her boyfriend and the father of the baby, Hari Nolen, is in the army and has been deployed to [place]. He will not return until February. She reports little to no support here. Her mother is in group home and her father is . She reports that her friend, Katie, is her main support system here while Hari is deployed. Katie will be up here to bring the patient and baby home and grocery shop for them. The patient receives income by [employer] and from [employer]. The patient also has two other children: Cesar (4-years-old) and Artur (2-years-old). She reports that her and her soon to be ex-, Pieter, had Cesar when they were young and gave [place] to Pieter's parents. She reports that Cesar lives with Pieter's parents and that they have guardianship for him. She states that Artur is with his father and that she has him on Tuesdays/Wednesdays/and every other weekend. The patient reports that she has a carseat, crib, all supplies for baby and has applied for WIC. SW addressed the patient's positive UDS. The patient admits to marijuana use around a month to a month 1/2 ago. She reports that she could not keep any food or liquids down, so took an edible gummy and brownie to help. She states that she did not use marijuana at any other time during . She does admit to using marijuana during her last too. She reports no concerns for using marijuana again when she brings baby home. The patient also has a history of anxiety and depression. The patient reports that her OB at [facility] prescribed her Zoloft and that she talks to a therapist, Susanna at [facility], for her mental health. She reports that she plans on calling [facility] on Thursday to schedule an appointment with Susanna. The patient had no concerns for SW about taking baby home. DULCE made a CPS report. Intake ID#[id number]. The baby's cord blood is pending. DULCE updated the patient's RN on the above.
[2020-07-17 15:55] VITALS: BP 142/74; PULSE 97; TEMP 97.8
--- NOTE | 2020-07-17 19:00 | NUR ---
Pt requests discharge as soon as the baby gets transferred, "So I can go up there to be with her" Pt reports "I don't have anyone to take me to [employer]. My ex- is watching our other 2 children and the FOB is in [place]."
--- NOTE | 2020-07-17 21:15 | NUR ---
Discharge instructions reviewed with pt. Pt given 2 percocet et 2 Motrin 600mg in discharge pack. Questions invited and answered. Pt discharged to take Taxi to [facility]. Taxi voucher provided.
--- NOTE | 2020-08-01 09:28 | NUR ---
Patient's 's cord blood was positive for cannabinoids. wire preparation worker filed a CPS report #[id number] and faxed cord results to [facility].
== END 2020-07-17 21:15 | disposition home or self-care (01) | DRG 788 ==
LOC: LDRO 02:56 → LDR 03:23 → LDRO 03:25 → OB 03:35 → LDR 03:35 → OB 06:35
PROVIDERS: ADMIT Obstetrics & Gynecology
PROC: 10D00Z1 Extraction of Products of Conception, Low, Open Approach (ICD-10-PCS; principal; 2020-07-16)
DX: O99.824 Streptococcus B carrier state complicating childbirth (principal); O34.211 Maternal care for low transverse scar from previous cesarean delivery; O99.344 Other mental disorders complicating childbirth; F41.9 Anxiety disorder, unspecified; F32.9 Major depressive disorder, single episode, unspecified; O99.214 Obesity complicating childbirth; O99.62 Diseases of the digestive system complicating childbirth; K21.9 Gastro-esophageal reflux disease without esophagitis; Z20.822 Contact with and (suspected) exposure to COVID-19; O90.81 Anemia of the puerperium; D64.9 Anemia, unspecified; Z3A.38 38 weeks gestation of pregnancy; Z37.0 Single live birth; Z87.891 Personal history of nicotine dependence; Z88.6 Allergy status to analgesic agent
CPT/HCPCS: J0690; J1885; J2175; J2250; J2405; J2590; J7120